=== PATIENT | female | born 1975 | race Caucasian/White ===

== ENCOUNTER 2016-08-19 20:57 | Emergency (ER) | payer OTHER ==
[2016-08-19 21:01] VITALS: BP 154/83; PULSE 64; TEMP 99; BMI 32.3
--- NOTE | 2016-08-19 21:41 | PDOC ---
History of Present Illness - General Chief Complaint: Back Pain Stated Complaint: BACK PAIN/SOB/SORE THROAT Time Seen by Provider: 08/19/16 21:09 History Source: Patient Exam Limitations: No Limitations - History of Present Illness Initial Comments: 08/19/16 21:25 Patient is a 41-year-old female with past medical history of hypertension presenting to the ER tonight complaining of shortness of breath and back pain. Patient was evaluated 1 week ago for an upper respiratory infection. Was placed on Zithromax and prednisone. Patient states that she finished the medications and is still feeling short of breath on exertion. She states that she feels short of breath after walking up 2 flights of stairs. This is new for her. No history of asthma. Patient also complains of chronic low back pain has been going on for 3 weeks. She presents for an x-ray at this time with a prescription from her primary care doctor for an x-ray. Denies fevers chills, chest pain, palpitations, edema, nausea, vomiting, diarrhea, saddle anesthesia, bladder and bowel incontinence. Past History - Travel Traveled outside of the country in the last 30 days: No Close contact w/someone who was outside of country & ill: No - Past Medical History Allergies/Adverse Reactions: Allergies Allergy/AdvReac Type Severity Reaction Status Date / Time No Known Allergies Allergy Verified 08/19/16 20:58 Home Medications: Ambulatory Orders Albuterol Sulfate Inhaler - [Ventolin HFA Inhaler -] 1 - 2 inh PO QID #1 inhaler 08/19/16 Azithromycin 250 mg PO ASDIR 08/19/16 Ibuprofen 800 mg PO TID #21 tablet 08/19/16 Prednisone 10 mg PO ASDIR 08/19/16 HTN: Yes Other medical history: endometriosis, pseudotumor cerebri - Surgical History Abdominal Surgery: Yes (RONNIE GAMBLE) Neurologic Surgery: No - Psycho/Social/Smoking Cessation Hx Anxiety: No Suicidal Ideation: No Smoking Status: No Smoking History: Never smoked Have you smoked in the past 12 months: No Number of Cigarettes Smoked Daily: 0 Information on smoking cessation initiated: No Hx Alcohol Use: No Drug/Substance Use Hx: No Review of Systems - Review of Systems Able to Perform ROS?: Yes Is the patient limited Portuguese proficient: No Constitutional: No: Chills, Fever, Weakness HEENTM: Yes: Throat Pain. No: Double Vision, Ear Pain, Nose Congestion, Tinnitus, Difficulty Swallowing Respiratory: Yes: Cough, Shortness of Breath, SOB with Exertion (after 2 flights of stairs) Cardiac (ROS): No: Chest Pain ABD/GI: No: Diarrhea, Nausea, Vomiting Musculoskeletal: Yes: Back Pain (Low back pain for 3 weeks) Neurological: No: Numbness, Paresthesia (no saddle ansethesia), Weakness *Physical Exam - Vital Signs Last Vital Signs Temp Pulse Resp BP Pulse Ox 99 F 64 18 154/83 97 08/19/16 20:59 08/19/16 20:59 08/19/16 20:59 08/19/16 20:59 08/19/16 20:59 - Physical Exam General Appearance: Yes: Nourished, Appropriately Dressed, Obese. No: Apparent Distress HEENT: positive: EOMI, ANITA, Normal Voice, Symmetrical, TMs Normal, Pharynx Normal, Nasal Congestion, Rhinorrhea Neck: positive: Trachea midline, Supple. negative: Tender, Rigid Respiratory/Chest: positive: Rhonchi (clears with cough), Other (equal b/l breath sounds). negative: Respiratory Distress, Accessory Muscle Use, Wheezing Cardiovascular: positive: Regular Rhythm, Regular Rate, S1, S2 (present), Murmur (grade 1 systolic murmur over the R 3-4th intercostal space) Musculoskeletal: positive: Other (Back ROM fully intact, (+) TTP of the paraspinous muscles at the level of L4/5). negative: Decreased Range of Motion , Muscle Spasm Integumentary: positive: Normal Color, Dry, Warm Neurologic: positive: photographic process screen maker II-XII NML intact, Fully Oriented, Alert, Normal Mood/ Affect, Normal Response, Motor Strength 5/5, Other (Gait intact; able to toe walk, heel walk. (-) trendelenberg.) Deep Tendon Reflexes: Knee (L): 2+, Knee (R): 2+ Medical Decision Making - Medical Decision Making 08/19/16 21:46 Patient is a 41-year-old female with past medical history of hypertension presenting to the ER tonight complaining of shortness of breath and back pain. Given the patient is completed course of antibiotics less likely bacterial in nature. Vital signs are stable, afebrile. We will trial patient with DuoNeb, we' ll send for chest x-ray and reevaluate. Patient is seen her PCP for the back pain and was prescribed an x-ray to evaluate back. Pain appears to be chronic in nature. Send lumbar x-ray. 08/19/16 22:14 Chest x-ray is negative at this time for pneumonia and no infiltrates are seen. Mildly enlarged heart. Lumbar and sacral x-ray shows no fractures good space between the vertebral bodies. Overall negative x-ray. Will advise patient follow up with her PCP and orthopedics for her back pain. 08/19/16 22:31 Patient states she feels much better after her DuoNeb treatment breathing easier. Chest tightness is gone. Lung sounds are clear at this time. Most likely a viral bronchitis. We will discharge the patient home with albuterol inhaler and follow-up with her PCP. Instructed patient had a use an inhaler. Patient is also prescribe Motrin as needed for her back pain. Patient understands all discharge instructions and all questions were answered. *DC/Admit/Observation/Transfer Diagnosis at time of Disposition: Bronchitis Back pain Qualifiers: Back pain location: low back pain Chronicity: unspecified Back pain laterality : unspecified Sciatica presence: without sciatica Qualified Code(s): M54.5 - Low back pain - Discharge Dispostion Admit: No - Prescriptions Prescriptions: Ibuprofen 800 mg PO TID #21 tablet Albuterol Sulfate Inhaler - [Ventolin HFA Inhaler -] 1 - 2 inh PO QID #1 inhaler - Referrals Referrals: Giovanny Thrasher [Primary Care Provider] - - Patient Instructions Printed Discharge Instructions: DI for Acute Bronchitis Additional Instructions: You have bronchitis. Your x-ray today was negative for pneumonia. You were prescribed an inhaler for your shortness of breath. Use the inhaler as prescribed until you feel better. You may also take ibuprofen for your back pain. Follow up with your primary care doctor in one week. Return to the ED if you have increasing shortness of breath, difficulty breathing, chest pain, or any changes in your symptoms
[2016-08-19] MEDS ORDERED: ALBUTEROL SO4 2.5/IPRATROPIUM 0.5 INH SOL 3 ML VIAL.NEB. NEB ONE (21:42)
== END 2016-08-19 22:56 | disposition home or self-care (01) ==
LOC: JERFT 20:57
PROC: 3E0F7GC Introduction of Other Therapeutic Substance into Respiratory Tract, Via Natural or Artificial Opening (ICD-10-PCS; principal; 2016-08-19)
DX: J40 Bronchitis, not specified as acute or chronic (principal); M54.5 Low back pain; I10 Essential (primary) hypertension
CPT/HCPCS: 71020-TC; 72100-TC; 94640; 99281-25

== ENCOUNTER 2016-11-05 19:36 | Emergency (ER) | payer OTHER ==
--- NOTE | 2016-11-05 19:43 | PDOC ---
History of Present Illness - General History Source: Patient Exam Limitations: No Limitations - History of Present Illness Travel History: No Initial Comments: 11/05/16 20:05 LMP: 08/25/2016 [employer] IN[employer]: Dr. Melquiades Reis 41-year-old female with no medical history presents to the emergency department complaining of suprapubic pressure without vaginal spotting 3 days. Discomfort is described as 3/10 nonradiating intermittent pressure without fever, chills, nausea/vomiting, abdominal pains, urinary symptoms: Frequency/urgency/hesitancy , hematuria, flank pains. The discomfort is alleviated at rest and there are no exacerbating factors. 11/05/16 20:10 Timing/Duration: reports: intermittent Quality: reports: mild Abdominal Pain Onset Location: reports: suprapubic <Lizz Quezada - Last Filed: 11/05/16 21:52> <Shey Singh - Last Filed: 11/07/16 00:47> - General Stated Complaint: VAGINAL BLEEDING Past History - Past Medical History HTN: Yes - Surgical History Abdominal Surgery: Yes (TUMMY TUCK) Neurologic Surgery: No - Psycho/Social/Smoking Cessation Hx Anxiety: No Suicidal Ideation: No Smoking Status: No Smoking History: Never smoked Have you smoked in the past 12 months: No Number of Cigarettes Smoked Daily: 0 Hx Alcohol Use: No Drug/Substance Use Hx: No <Lizz Quezada - Last Filed: 11/05/16 21:52> <Shey Singh - Last Filed: 11/07/16 00:47> - Past Medical History Allergies/Adverse Reactions: Allergies Allergy/AdvReac Type Severity Reaction Status Date / Time No Known Allergies Allergy Verified 11/05/16 19:58 Review of Systems - Review of Systems Able to Perform ROS?: Yes Comments:: 11/05/16 20:05 CONSTITUTIONAL: Absent: fever, chills, diaphoresis, generalized weakness, malaise, loss of appetite HEENT: Absent: rhinorrhea, nasal congestion, throat pain, throat swelling, difficulty swallowing, mouth swelling, ear pain, eye pain, visual Changes CARDIOVASCULAR: Absent: chest pain, loss of consciousness, palpitations, irregular heart rate, peripheral edema RESPIRATORY: Absent: cough, shortness of breath, dyspnea with exertion, orthopnea, wheezing, stridor, hemoptysis GASTROINTESTINAL: Absent: abdominal pain, abdominal distension, nausea, vomiting, diarrhea, constipation, melena, hematochezia GENITOURINARY: Absent: dysuria, frequency, urgency, hesitancy, hematuria, flank pain, genital pain MUSCULOSKELETAL: Absent: myalgia, arthralgia, joint swelling SKIN: Absent: rash, itching, pallor HEMATOLOGIC/IMMUNOLOGIC: Absent: easy bleeding, easy bruising, lymphadenopathy, frequent infections ENDOCRINE: Absent: unexplained weight gain, unexplained weight loss, heat intolerance, cold intolerance NEUROLOGIC: Absent: headache, focal weakness or paresthesias, dizziness, unsteady gait, seizure, mental status changes, bladder or bowel incontinence PSYCHIATRIC: Absent: anxiety, depression, suicidal or homicidal ideation, hallucinations. Is the patient limited Albanian proficient: No <Lizz Quezada - Last Filed: 11/05/16 21:52> *Physical Exam - Physical Exam Comments: 11/05/16 20:05 GENERAL: Well developed, well nourished. Awake and alert. No acute distress. HEENT: Normocephalic, atraumatic. PERRLA, EOMI. No conjunctival pallor. Sclera are non- icteric. Moist mucous membranes. Oropharynx is clear. NECK: Supple. Full ROM. No JVD. Carotid pulses 2+ and symmetric, without bruits. No thyromegaly. No lymphadenopathy. CARDIOVASCULAR: Regular rate and rhythm. No murmurs, rubs, or gallops. Distal pulses are 2+ and symmetric. PULMONARY: No evidence of respiratory distress. Lungs clear to auscultation bilaterally. No wheezing, rales or rhonchi. ABDOMINAL: Soft. Non-tender. Non-distended. No rebound or guarding. No organomegaly. Normoactive bowel sounds. MUSCULOSKELETAL Normal range of motion at all joints. No bony deformities or tenderness. No CVA tenderness. EXTREMITIES: No cyanosis. No clubbing. No edema. No calf tenderness. SKIN: Warm and dry. Normal capillary refill. No rashes. No jaundice. NEUROLOGICAL: Alert, awake, appropriate. Cranial nerves 2-12 intact. No deficits to light touch and temperature in face, upper extremities and lower extremities. No motor deficits in the in face, upper extremities and lower extremities. Normoreflexic in the upper and lower extremities. Normal speech. Toes are down- going bilaterally. Gait is normal without ataxia. PSYCHIATRIC: Cooperative. Good eye contact. Appropriate mood and affect. Pelvic: External genitalia normal without lesions. Vaginal vault is clear without blood or discharge. Cervix is long and closed. <PilarLizz - Last Filed: 11/05/16 21:52> - Vital Signs Last Vital Signs Temp Pulse Resp BP Pulse Ox 98.3 F 64 18 159/100 98 11/05/16 19:59 11/05/16 19:59 11/05/16 19:59 11/05/16 19:59 11/05/16 19:59 <hSey Singh - Last Filed: 11/07/16 00:47> ED Treatment Course - LABORATORY CBC & Chemistry Diagram: 11/05/16 19:40 11/05/16 19:40 - RADIOLOGY Radiograph Interpretation: 11/05/16 20:09 US transvaginal: No ovarian torsion. No free fluid. IUD and uterus. Endometrial stripe complex 4 mm thick. Unremarkable visual portion of bladder <Lizz Quezada - Last Filed: 11/05/16 21:52> - LABORATORY CBC & Chemistry Diagram: 11/05/16 19:40 11/05/16 19:40 - ADDITIONAL ORDERS Additional order review: Laboratory Results 11/05/16 19:40 Urine Color Yellow Urine Appearance Slcloudy Urine pH 5.0 Ur Specific [place] >= 1.030 H Urine Protein Negative Urine Glucose (UA) Negative Urine Ketones Negative Urine Blood 3+ H Urine Nitrite Negative Urine Bilirubin Negative Urine Urobilinogen Negative Ur Leukocyte Esterase 2+ H Urine RBC 72 Urine WBC 14 Ur Epithelial Cells Moderate Urine Bacteria Few Urine Mucus Few 11/05/16 19:40 RBC 4.45 MCV 83.5 MCHC 33.0 RDW 14.1 MPV 7.8 Neutrophils % 53.1 Lymphocytes % 35.6 Monocytes % 8.1 Eosinophils % 2.6 Basophils % 0.6 <Shey Singh - Last Filed: 11/07/16 00:47> *DC/Admit/Observation/Transfer - Discharge Dispostion Admit: No <Lizz Quezada - Last Filed: 11/05/16 21:52> - Attestations Physician Attestion: I reviewed the case with the mid-level practitioner and agree with the mid- level practitioner's assessment, diagnosis and disposition. <Shey Singh - Last Filed: 11/07/16 00:47> Diagnosis at time of Disposition: Dysfunctional uterine bleeding - Discharge Dispostion Disposition: HOME Condition at time of disposition: Stable - Referrals Referrals: Melquiades Reis MD [Staff Physician] - - Patient Instructions Printed Discharge Instructions: DI for Abnormal Uterine Bleeding Additional Instructions: Pelvic rest Increase fluids Tylenol as needed for pain Follow up with your Vending Attendant Return to the ER for severe/persistent/worsening symptoms Print Language: PORTUGUESE
[2016-11-05 19:59] LABS: BASOPHIL 0.6 % (0-2.0); EOSINOPHIL 2.6 % (0-4.5); MCH 27.6 pg (25.7-33.7); MEAN CELL VOLUME 83.5 fl (80-96); MEAN PLT VOLUME 7.8 fl (7.5-11.1); NEUTROPHILS 53.1 % (42.8-82.8); PLATELET COUNT 256 K/MM3 (134-434); RDW 14.1 % (11.6-15.6); WHITE BLOOD COUNT 6.3 K/mm3 (4.0-10.0)
[2016-11-05 20:00] LABS: URINE APPEARANCE SLCLOUDY; URINE BILIRUBIN NEGATIVE (NEGATIVE); URINE BLOOD 3+ (NEGATIVE); URINE COLOR YELLOW; URINE GLUCOSE (UA) NEGATIVE (NEGATIVE); URINE KETONE NEGATIVE (NEGATIVE); URINE NITRITE NEGATIVE (NEGATIVE); URINE PROTEIN NEGATIVE (NEGATIVE); URINE UROBILINOGEN NEGATIVE mg/dL (0.2-1.0)
[2016-11-05 20:03] VITALS: BP 159/100; PULSE 64; TEMP 98.3; BMI 32.3
[2016-11-05 20:03] LABS: URINE LEUK ESTERASE 2+ (NEGATIVE)
[2016-11-05 20:05] LABS: URINE BACTERIA FEW /hpf (NONE SEEN); URINE MUCUS FEW; URINE RBC 72 /hpf (0-3); URINE WBC 14 /hpf (3-5)
[2016-11-05 20:37] LABS: ALBUMIN 3.9 g/dl (3.4-5.0); ALK PHOS 52 U/L (45-117); ANION GAP 7 (8-16); BILIRUBIN,TOTAL 0.2 mg/dL (0.2-1.0); CALCIUM 9.7 mg/dL (8.5-10.1); CO2 28 mmol/L (21-32); CREATININE 0.9 mg/dL (0.55-1.02); GLUCOSE,RANDOM 106 mg/dL (74-106); SGOT/AST 19 U/L (15-37); SGPT/ALT 29 U/L (12-78); TOT PROT 7.6 g/dl (6.4-8.2)
== END 2016-11-05 23:01 | disposition home or self-care (01) ==
LOC: JER 19:36
DX: N93.8 Other specified abnormal uterine and vaginal bleeding (principal)
CPT/HCPCS: 36415; 76830-TC; 80053; 81003; 81015; 84702; 85025; 86850; 86900; 86901; 99282-25

== ENCOUNTER 2017-05-15 12:14 | Emergency (ER) | payer OTHER ==
[2017-05-15 13:17] VITALS: TEMP 98.2; BMI 33.0
--- NOTE | 2017-05-15 13:57 | PDOC ---
History of Present Illness - General History Source: Patient - History of Present Illness Timing/Duration: reports: other <TamazightLuzma - Last Filed: 05/15/17 17:01> <Shey Singh - Last Filed: 05/16/17 11:56> - General Chief Complaint: Vaginal Bleeding Stated Complaint: VAGINAL BLEEDING, PAIN Time Seen by Provider: 05/15/17 13:40 Past History - Past Medical History Anemia: Yes COPD: No HTN: Yes - Surgical History Abdominal Surgery: Yes (RONNIE GAMBLE) Neurologic Surgery: No - Reproductive History Is Patient Now?: No (#): 4 Para: 3 Spontaneous : 1 - Suicide/Smoking/Psychosocial Hx Smoking Status: No Smoking History: Never smoked Have you smoked in the past 12 months: No Number of Cigarettes Smoked Daily: 0 Information on smoking cessation initiated: No Hx Alcohol Use: No Drug/Substance Use Hx: No Substance Use Type: None <TamazightCaprice-Julia - Last Filed: 05/15/17 17:01> <Shey Singh - Last Filed: 05/16/17 11:56> - Past Medical History Allergies/Adverse Reactions: Allergies Allergy/AdvReac Type Severity Reaction Status Date / Time No Known Allergies Allergy Verified 11/05/16 19:58 Home Medications: Ambulatory Orders Ferrous Sulfate [Iron] 325 mg PO DAILY 05/15/17 Review of Systems - Review of Systems Constitutional: No: Fever, Malaise Respiratory: No: Shortness of Breath Cardiac (ROS): No: Palpitations, Syncope ABD/GI: Yes: Abdominal cramping : No: Dysuria <TamazightChloeJulia - Last Filed: 05/15/17 17:01> *Physical Exam - Vital Signs Last Vital Signs Temp Pulse Resp BP Pulse Ox 98.2 F 61 20 135/92 100 05/15/17 13:13 05/15/17 13:13 05/15/17 13:13 05/15/17 13:13 05/15/17 13:13 - Physical Exam General Appearance: Yes: Appropriately Dressed. No: Apparent Distress HEENT: positive: Normal Voice Neck: positive: Supple Respiratory/Chest: negative: Respiratory Distress Gastrointestinal/Abdominal: positive: Soft. negative: Tender Musculoskeletal: negative: CVA Tenderness Integumentary: positive: Dry, Warm Neurologic: positive: Fully Oriented, Alert, Normal Mood/Affect <Luzma Arita - Last Filed: 05/15/17 17:01> - Vital Signs Last Vital Signs Temp Pulse Resp BP Pulse Ox 98.2 F 65 18 130/65 99 05/15/17 13:13 05/15/17 17:22 05/15/17 17:22 05/15/17 17:22 05/15/17 17:22 <Shey Singh - Last Filed: 05/16/17 11:56> ED Treatment Course - LABORATORY CBC & Chemistry Diagram: 05/15/17 14:26 05/15/17 14:26 - RADIOLOGY Radiology Studies Ordered: Category Date Time Status PELVIS(OTHER) US [US] Stat Ultrasound 05/15/17 13:51 Ordered TRANSVAGINAL ULTRASOUND US [US] Stat Ultrasound 05/15/17 13:51 Ordered <Luzma Arita - Last Filed: 05/15/17 17:01> - LABORATORY CBC & Chemistry Diagram: 05/15/17 14:26 05/15/17 14:26 - ADDITIONAL ORDERS Additional order review: 05/15/17 14:26 RBC 3.58 L MCV 77.3 L MCHC 31.5 L RDW 15.0 MPV 7.2 L Neutrophils % 47.5 Lymphocytes % 41.8 H Monocytes % 6.7 Eosinophils % 3.3 Basophils % 0.7 <Shey Singh - Last Filed: 05/16/17 11:56> Medical Decision Making - Medical Decision Making 05/15/17 13:52 42-year-old female, h/o endometriosis, no surgery, anemia, on iron pills, here with menorrhagia. Pt states up until 3 months ago, she continued to get normal monthly periods, but since February has been bleeding on and off up until now. States bleeding currently minimal. Also reports intermittent abdominal cramping. States she was seen by her INSURANCE CLAIMS CLERK a week ago who wants her to have an ultrasound done but pt pending pre-approval from her insurance. States she was feeling lightheaded today, so decided to come to the ED. No known history of cysts or fibroids. No blood transfusions in the past. States she was told she might need iron transfusion in the near future See exam Menorrhagia H/o endometriosis and anemia on iron pills No recent US Dizziness today R/o preg -labs -US -anticipate discharge w/ INSURANCE CLAIMS CLERK f/u 05/15/17 16:47 HGB 8.7 today, down from 12 from 11/10 on chart review. Patient has no dizziness , weakness at this time and remains stable and well appearing in ED. Ultrasound negative for any uterine/endometrial pathology. There is a right ovarian cyst that was seen on previous study. Case discussed w/ ED attending, who states as patient stable, no need for blood transfusion at this time. Pt instructed to contact her INSURANCE CLAIMS CLERK in am to make aware of current hemoglobin. Also instructed to continue her iron pills. Patient now reports that she has her first hematology appointment on May 31. Strict return precautions given <Luzma Arita - Last Filed: 05/15/17 17:01> *DC/Admit/Observation/Transfer <Luzma Arita - Last Filed: 05/15/17 17:01> - Attestations Physician Attestion: I reviewed the case with the mid-level practitioner and agree with the mid- level practitioner's assessment, diagnosis and disposition. <Shey Singh - Last Filed: 05/16/17 11:56> Diagnosis at time of Disposition: Dysfunctional uterine bleeding Anemia Qualifiers: Anemia type: iron deficiency Iron deficiency anemia type: chronic blood loss Qualified Code(s): D50.0 - Iron deficiency anemia secondary to blood loss ( chronic) - Discharge Dispostion Disposition: HOME Condition at time of disposition: Stable - Patient Instructions Printed Discharge Instructions: DI for Vaginal Bleeding Additional Instructions: Your hemoglobin was 8.7 today, which is down from 12 from 11/10. Your ultrasound shows no uterine or endometrial pathology. However, there is redemonstration of a right ovarian cyst that was seen on prior study. Please contact your INSURANCE CLAIMS CLERK in the a.m. to make her aware of ED visit and results. Continue taking your iron pills and please follow-up with hematology at your scheduled appointment on May 31. If symptoms worsen and you become weak, dizzy or short of breath, please return to the ER immediately
[2017-05-15 14:39] LABS: BASO % 0.7 % (0-2.0); EOS % 3.3 % (0-4.5); HEMATOCRIT 27.7 % (32.4-45.2); HEMOGLOBIN 8.7 GM/dL (10.7-15.3); LYMPH % 41.8 % (8-40); MCH 24.4 pg (25.7-33.7); MCHC 31.5 g/dl (32.0-36.0); MEAN CELL VOLUME 77.3 fl (80-96); MEAN PLT VOLUME 7.2 fl (7.5-11.1); MONO % 6.7 % (3.8-10.2); NEUT % 47.5 % (42.8-82.8); PLATELET COUNT 307 K/MM3 (134-434); RBC 3.58 M/mm3 (3.60-5.2); WHITE BLOOD COUNT 5.9 K/mm3 (4.0-10.0)
[2017-05-15 14:43] LABS: URINE APPEARANCE SLCLOUDY; URINE BILIRUBIN NEGATIVE (NEGATIVE); URINE BLOOD 3+ (NEGATIVE); URINE COLOR YELLOW; URINE GLUCOSE (UA) NEGATIVE (NEGATIVE); URINE KETONE NEGATIVE (NEGATIVE); URINE NITRITE NEGATIVE (NEGATIVE); URINE PROTEIN NEGATIVE (NEGATIVE); URINE UROBILINOGEN NEGATIVE mg/dL (0.2-1.0)
[2017-05-15 14:44] LABS: URINE LEUK ESTERASE 1+ (NEGATIVE)
[2017-05-15 15:08] LABS: ALBUMIN 3.9 g/dl (3.4-5.0); ANION GAP 6 (8-16); BILIRUBIN,TOTAL 0.2 mg/dL (0.2-1.0); BLOOD UREA NITROGEN 13 mg/dL (7-18); CALCIUM 8.1 mg/dL (8.5-10.1); CHLORIDE 109 mmol/L (98-107); CO2 23 mmol/L (21-32); CREATININE 0.8 mg/dL (0.55-1.02); GLUCOSE,RANDOM 103 mg/dL (74-106); POTASSIUM 3.9 mmol/L (3.5-5.1); SGOT/AST 16 U/L (15-37); SGPT/ALT 16 U/L (12-78); SODIUM 138 mmol/L (136-145)
[2017-05-15 15:09] LABS: ALK PHOS 63 U/L (45-117); TOT PROT 7.5 g/dl (6.4-8.2)
[2017-05-15 15:19] LABS: EPI CELLS FEW /HPF (FEW); URINE MUCUS RARE
[2017-05-15 17:24] VITALS: BP 130/65; PULSE 65
== END 2017-05-15 17:22 | disposition home or self-care (01) ==
LOC: JER 12:14
DX: N92.0 Excessive and frequent menstruation with regular cycle (principal); D50.0 Iron deficiency anemia secondary to blood loss (chronic)
CPT/HCPCS: 36415; 76830-TC; 76856-TC; 80053; 81003; 81015; 84703; 85025; 99282-25